=== PATIENT | male | born 1990 | race Caucasian/White ===

== ENCOUNTER 2019-03-08 19:23 | Emergency (ER) | payer OTHER, SELFPAY ==
[2019-03-08 19:30] VITALS: BP 124/78; PULSE 67; RESP 16; O2SAT 99; BMI 26.6
--- NOTE | 2019-03-08 19:33 | DI.RAD.S_ITS ---
PROCEDURE: XR FINGER RT MIN 2V INDICATIONS: jammed finger, pain bruising TECHNIQUE: AP hand, 2 views of the fourth finger(s) acquired. COMPARISON: None. FINDINGS: Bones: There is an acute fracture involving dorsal aspect of fourth distal phalangeal base with proximally displaced fragment. No other fracture or dislocation. No suspicious bony lesions. Soft tissues: No suspicious soft tissue calcifications. IMPRESSION: Acute avulsed fracture involving dorsal aspect of fourth distal phalangeal base. Dictated by: Daniel Ward M.D. on 03/08/2019 at 20:06 Approved by: Daniel Ward M.D. on 03/08/2019 at 20:08
--- NOTE | 2019-03-08 20:58 | ED_ITS ---
HPI - Extremity Injury (Upper) <SRIDEVI Velasquez - Last Filed: 03/08/19 21:09> General Chief Complaint: Extremity Injury, Upper Stated Complaint: injury to ring finger right hand, thinks Fx Time Seen by Provider: 03/08/19 19:57 Source: patient Mode of arrival: Ambulatory History of Present Illness HPI narrative: The patient is a 28-year-old male nonsmoker who denies pertinent medical history presents with a chief complaint of an injury to the 4th digit of his right hand. He states that he jammed on a car door earlier today. States it is bruised. No bleeding. Concerned about possible fracture. No previous injuries to area Related Data Allergies Allergy/AdvReac Type Severity Reaction Status Date / Time No Known Drug Allergies Allergy Verified 03/08/19 19:33 Review of Systems <SRIDEVI Velasquez - Last Filed: 03/08/19 21:09> Review of Systems Narrative: GENERAL: Denies chills, fatigue, malaise, fever, sweats. HEENT: Denies sinus pain, ear pain, sore throat, difficulty swallowing, dizziness. RESPIRATORY: Denies dyspnea, cough, wheezing, hemoptysis, sputum. CARDIOVASCULAR: Denies chest pain, palpitations, orthopnea, edema, GASTROINTESTINAL: Denies nausea, vomiting, abdominal pain, diarrhea, constipatio n, melena. : Denies dysuria, frequency, incontinence, hematuria, urinary retention. MUSCULOSKELETAL: See HPI SKIN: See HPI NEUROLOGIC: Denies weakness, headache, numbness, change in speech, confusion, seizures, incoordination. PSYCHIATRIC: No concerning psychosocial issues. 12 point review of systems is negative except for those stated above Patient History <SRIDEVI Velasquez - Last Filed: 03/08/19 21:09> Social History Smoking Status: Never smoker Smoking Status: Never smoker Substance Use Type: does not use Exam <SRIDEVI Velasquez - Last Filed: 03/08/19 21:09> Narrative Exam Narrative: GENERAL: This is a well-nourished, well-developed patient, in no acute distress HEAD: Atraumatic. Normocephalic. No temporal or scalp tenderness. EYES: Pupils equal round and reactive. Extraocular motions intact. No scleral icterus. No injection or drainage. ENT: Nose without bleeding, purulent drainage or septal hematoma. Throat without erythema, tonsillar hypertrophy or exudate. Uvula midline. Airway patent. NECK: Trachea midline. No JVD or lymphadenopathy. Supple, nontender, no meningeal signs. CARDIOVASCULAR: Regular rate and rhythm RESPIRATORY: No cough. No increased respiratory effort. No accessory muscle use. EXTREMITIES: Right 4th digit has pain to palpation, slight flexion noted at distal phalanx. Capillary refill less than 2 seconds. Positive radial pulses. BACK: Nontender without deformity or crepitance. No flank tenderness. NEURO: AOx3. SKIN: Ecchymosis noted over distal aspect right 4th digit no bleeding laceration or abrasion Initial Vital Signs Initial Vital Signs: Vital Signs Pulse Rate 67 03/08/19 19:30 Respiratory Rate 16 03/08/19 19:30 Blood Pressure 124/78 03/08/19 19:30 Pulse Oximetry 99 03/08/19 19:30 <Daniel Herrera DO - Last Filed: 03/08/19 23:06> Initial Vital Signs Initial Vital Signs: Vital Signs Pulse Rate 67 03/08/19 19:30 Respiratory Rate 16 03/08/19 19:30 Blood Pressure 124/78 03/08/19 19:30 Pulse Oximetry 99 03/08/19 19:30 Procedures <SRIDEVI Velasquez - Last Filed: 03/08/19 21:09> Orthopedic Splinting/Casting Injury #1: Side: right Upper Extremity Injury Location: finger Upper Extremity Immobilizer: finger (other) Post splinting neuro exam: intact Post splinting vascular exam: intact Placed by: Nursing Course <SRIDEVI Velasquez - Last Filed: 03/08/19 21:09> Orders Ordered: ED Orders 03/08/19 19:33 XR finger RT min 2V Stat Vital Signs Vital signs: Vital Signs - 8 hr 03/08/19 19:30 03/08/19 21:07 Temperature 98.0 F Pulse Rate 67 63 Respiratory Rate 16 14 Blood Pressure 124/78 124/76 Pulse Oximetry 99 100 <Daniel Herrera DO - Last Filed: 03/08/19 23:06> Orders Ordered: ED Orders 03/08/19 19:33 XR finger RT min 2V Stat Vital Signs Vital signs: Vital Signs - 8 hr 03/08/19 19:30 03/08/19 21:07 Temperature 98.0 F Pulse Rate 67 63 Respiratory Rate 16 14 Blood Pressure 124/78 124/76 Pulse Oximetry 99 100 [facility] - Extremity Injury (Upper) <CHRISTI Velasquez-BC - Last Filed: 03/08/19 21:09> Imaging Data Finger x-ray: Radiologist's impression: [facility] Narrative Medical decision making narrative: The patient is a 28-year-old male who presents with a chief complaint of a jammed right 4th finger. Exam indicates ecchymosis, no laceration. X-ray illustrate an acute avulsion fracture involving the dorsal aspect of the 4th distal phalangeal base. I given his slight flexion, I'm concerned about I soft tissue injury. He is placed in a splint. Encouraged rest ice compression elevation. Discussed the possibility that he may have the splint on for approximately 6 weeks. He is neurovascularly intact her stay in the emergency department. Patient has no questions or concerns upon discharge states understanding return precautions as well as follow-up care. Discharge Plan Departure Patient Disposition: Home Clinical Impression: Avulsion fracture of distal phalanx of finger Qualifiers: Encounter type: initial encounter Fracture type: closed Qualified Code(s): S62.639A - Displaced fracture of distal phalanx of unspecified finger, initial encounter for closed fracture Discharge Date/Time: 03/08/19 21:06 Instructions: DI for Finger Fracture, How To Perform RICE (Rest, Ice, Compress, Elevate) Activity Restrictions/Additional Instructions: Thank you for trusting us with your care. Please have safe travels home to [place]. As discussed, you have a small avulsion fracture which could represent a ligament or tendon injury, which correlates with the flexion of the tip of your finger. Please use rest ice compression elevation as well as [id number] medications as needed and able Please leave the splint on to keep your finger straight. You may need to have this on for about 6 weeks. Please follow-up with primary care provider in the next few days. Please come back to the emergency department for any acute concerns Referrals: [facility] [Provider Group] <Daniel Herrera DO - Last Filed: 03/08/19 23:06> Sign Out Provider Sign Out Attestation: Dr Herrera Co-Sign Statement: I was available for consultation during this patient's emergency department visit. This chart is signed by myself for administrative purposes only. I did not have direct contact with this patient during this visit. They were seen independently by the APC.
[2019-03-08 21:07] VITALS: BP 124/76; PULSE 63; RESP 14; TEMP 36.7; O2SAT 100
== END 2019-03-08 21:06 | disposition home or self-care (01) ==
PROVIDERS: Emergency Provider Nurse Practitioner Family
DX: S62.634A Displaced fracture of distal phalanx of right ring finger, initial encounter for closed fracture (principal); W23.0XXA Caught, crushed, jammed, or pinched between moving objects, initial encounter
CPT/HCPCS: 29130; 73140; 99282; 99283